=== PATIENT | female | born 1970 | race Caucasian/White ===

== ENCOUNTER 2017-05-19 18:20 | Emergency (ER) | payer OTHER, MEDICAID ==
[~2017-05-19] VITALS: Ht 162.6 cm; Wt 90.3 kg
[~2017-05-19 18:20] MED LIST: ADVAIR HFA 230M12 GM INH; ALPRAZOLAM ER1 MG PO; AMBIEN 10 MG TA10 MG PO; ASPIRIN325; BAYER CHEWABLE81 MG PO; CITALOPRAM; DESYREL50 MG PO; DIFLUCAN150 M1 PO; DOXEPIN HCL50 MG PO; EFFEXOR; EFFEXOR XR75 MG PO; EFFEXOR50 MG PO; FLAGYL500 MG PO; FLEXERIL PO; FLONASE 0.05%50 MCG INH; HYDROCODONE-AP1 EAC6 PO; IBUPROFEN 200200 M1; IBUPROFEN 800800 M1 PO; IBUPROFEN 800800 MG PO; IRON236 MG; JANUMET XR 1001 EACH; KEFLEX500 M1 PO; LAMICTAL XR100 MG PO; LIORESAL 10 MG10 MG PO; LORTAB 5 MG/5001 TA1 PO; MELATONIN 5 MG1 EAC1; MOBIC15 MG; MOBIC15 MG PO; MULTIVITAMINS; NABUMETONE 750750 M1 PO; NAPROSYN500 MG PO; NEURONTIN100 MG PO; NORCO 10-325 T1 EACH; NORCO 5-325 TA1 EACH PO; NORVASC5 MG PO; PENICILLIN VK500 M1 PO; PRILOSEC20 MG PO; PROAIR HFA8.5 GM INH; PROPRANOLOL 1010 MG PO; PROPRANOLOL 20M20 M1 PO; PROTONIX40 M2 PO; RESTORIL30 MG PO; RISPERDAL 1 MG T1 MG PO; RISPERDAL0.5 MG PO; SLOW RELEASE I140 MG; STOOL SOFTENER100 MG PO; TOPAMAX50 MG PO; TRAZODONE 100100 MG PO; TRAZODONE 150150 M1 PO; TRILEPTAL 300300 MG PO; ULTRAM 50MG TAB50 MG PO; VISTARIL 25 MG25 M1 PO; XANAX 0.5 MG0.5 MG PO; XANAX PO; ZANAFLEX2 MG PO; ZYRTEC10 M2 PO
[2017-05-19] MEDS ORDERED: ACID REDUCER20 MG PO (19:25)
[2017-05-19] MEDS ORDERED: TRIAMCINOLONE A80 G2 TOP (19:25)
[2017-05-19] MEDS ORDERED: MEDROLDOSEPACK PO (19:25)
[2017-05-19 19:41] VITALS: BP 142/75
== END 2017-05-19 19:41 | disposition home or self-care (01) ==
LOC: M.ERS 18:20
DX: L50.0 Allergic urticaria (principal); F31.9 Bipolar disorder, unspecified; K21.9 Gastro-esophageal reflux disease without esophagitis; M19.90 Unspecified osteoarthritis, unspecified site; G43.909 Migraine, unspecified, not intractable, without status migrainosus; I10 Essential (primary) hypertension; Z88.5 Allergy status to narcotic agent; Z88.8 Allergy status to other drugs, medicaments and biological substances

== ENCOUNTER 2018-07-03 23:13 | Inpatient (IN) | payer OTHER, MEDICAID ==
[~2018-07-03] VITALS: Ht 162.6 cm; Wt 98.0 kg
[~2018-07-03 23:13] MED LIST changes: +ACID REDUCER20 MG PO; +COZAAR 25 MG TA25 M1 PO; +MEDROLDOSEPACK PO; +MELATONIN5 M1; +NORCO 10-325 T1 EACH PO; +SLEEP AID50 MG; +TRIAMCINOLONE A80 G2 TOP; +ZYRTEC10 M4
[2018-07-03 23:15] VITALS: BP 144/86
--- NOTE | 2018-07-03 23:33 | NUR ---
PT UP TO BATHROOM. STEADY GAIT.
[2018-07-03 23:38] LABS: ABSOLUTE BASOPHILS 0.1 thou/uL (0.0-0.2); ABSOLUTE EOSINOPHILS 0.1 thou/uL (0.0-0.7); ABSOLUTE LYMPHOCYTES 2.4 thou/uL (0.8-5.3); ABSOLUTE MONOCYTES 0.5 thou/uL (0.0-1.2); ABSOLUTE NEUTROPHILS 3.1 thou/uL (1.6-8.1); BASOPHILS 1.4 %; EOSINOPHILS 1.5 %; HEMATOCRIT 39.7 % (37.0-47.0); HEMOGLOBIN 13.9 gm/dL (12.0-15.0); LYMPHOCYTES 39.8 %; MCH 32.9 pg (26.0-34.0); MCV 94.2 fL (80.0-100.0); MONOCYTES 7.4 %; MPV 7.7 fl. (7.2-11.1); NUCLEATED RBCS 0 /100WBC; PLATELET COUNT* 198 thou/uL (150-400); POLYS 49.9 %; RBC 4.21 mil/uL (4.20-5.00); RDW-CV 12.5 % (10.5-14.5); WBC 6.2 thou/uL (4.0-11.0)
[2018-07-03 23:48] LABS: ANION GAP 6 mmol/L (7-16); BUN 6 mg/dL (7-18); CALCIUM 9.2 mg/dL (8.5-10.1); CHLORIDE 92 mmol/L (98-107); CO2 29 mmol/L (21-32); CREATININE 0.7 mg/dL (0.6-1.3); GLUCOSE 110 mg/dL (70-99); POTASSIUM 3.2 mmol/L (3.5-5.1); SODIUM 127 mmol/L (136-145)
--- NOTE | 2018-07-03 23:48 | NUR ---
RADIOLOGY AT BEDSIDE
[2018-07-03 23:56] LABS: URINE BILIRUBIN NEGATIVE (Negative); URINE BLOOD NEGATIVE (Negative); URINE CLARITY CLEAR; URINE COLOR STRAW; URINE GLUCOSE-RANDOM NEGATIVE (Negative); URINE KETONES NEGATIVE (Negative); URINE LEUKOCYTES-REFLEX NEGATIVE (Negative); URINE NITRITE-REFLEX NEGATIVE (Negative); URINE PROTEIN NEGATIVE (Negative); URINE SPECIFIC GRAVITY <= 1.005 (1.005-1.030); URINE UROBILINOGEN 0.2 E.U./dl (0.2-1.0)
[2018-07-03 23:59] LABS: ALBUMIN 3.8 g/dL (3.4-5.0); ALKALINE PHOSPHATASE 80 U/L (46-116); NT-PRO BRAIN NAT PEPTIDE 54 pg/mL (<300); SGOT 36 U/L (15-37); SGPT 48 U/L (30-65); TOTAL BILIRUBIN 0.3 mg/dL (<0.1-1.0); TOTAL PROTEIN 7.1 g/dL (6.4-8.2); TROPONIN-I LEVEL <0.06 ng/mL (<0.06)
[2018-07-04 00:01] LABS: INR 1.1; PROTIME 10.9 Seconds (9.20-11.50)
--- NOTE | 2018-07-04 00:15 | NUR ---
PT UPDATED ON POC
--- NOTE | 2018-07-04 01:43 | NUR ---
PT UP TO DATE ON POC
[2018-07-04 02:52] VITALS: BP 111/80
[2018-07-04 03:07] VITALS: BP 138/64
--- NOTE | 2018-07-04 05:27 | NUR ---
RECEIVED PT FROM ED @ APPROX 0300. PT AWAKE AND ORIENTED X 4. VSS ON O2 INHALATION VIA NC @2L. 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 PT VERBALIZED CHEST PAIN WAS RELEIVED BY NITRO AND MORPHINE GIVEN IN THE ED. PROVIDED ORIENTATION ON ROOM SET UP AND CALL LIGHT USE. HOURLY ROUNDING DONE FOR PT SAFETY.
[2018-07-04 08:10] VITALS: BP 114/81
--- NOTE | 2018-07-04 08:10 | NUR ---
RECEIVED REPORT FROM LINDA/ROLANDO AND ASSUMED CARE OF PT @ 1456.PT IS A/O X4,VSS,TRACING SR ON THE MONITOR.PT REMAINS ON 2L O2 NC.IV PATENT WITH IVF INFUSING PER ORDERS.PT IS NPO STATUS PENDING CARDIOLOGY CONSULT.PT IS CALM AND COOPERATIVE WITH C/O PAIN IN HER BACK 10/29.-MEDICATIONS GIVEN.PT IS UP AD JESSICA IN ROOM.CALL LIGHT WITHIN REACH.WILL CONTINUE TO MONITOR.
[2018-07-04 09:10] LABS: CALCIUM 9.2 mg/dL (8.5-10.1); CREATININE 0.6 mg/dL (0.6-1.3); MAGNESIUM 2.2 mg/dL (1.8-2.4)
[2018-07-04 11:16] VITALS: BP 118/82
--- NOTE | 2018-07-04 13:10 | EKG ---
[place] [address] ELECTROCARDIOGRAM REPORT Name: GEORGE KOVACS Room: [address] ADM IN .R.#: [id number] Admission: 07/04/18 Attend Phys: Saulo Christopher MD Discharge: Date of : 70 Report #: [id number] THIS REPORT FOR: //name// [facility] ED Test Date: 2018-07-03 Test Time: 23:21:20 Pat Name: GEORGE KOVACS Department: Room: [facility] Gender: F Ged Preparation Teacher: Leon De Leon : 1970 Requested By: Sofiya Stein Order Number: [id number] MD: Daryl Barbour Measurements Intervals [place] Rate: 99 P: 71 NV: 157 QRS: 16 QRSD: 97 T: 75 QT: 371 QTc: 477 Interpretive Statements Sinus rhythm Probable left atrial enlargement nonspecific st changes Compared to ECG 06/17/2018 10:25:35 Ventricular premature complex(es) no longer present Electronically Signed On 07-04-2018 13:09:52 MINERAL MIXER by Daryl Barbour [email or web address] <ELECTRONICALLY SIGNED> By: Daryl Barbour MD, [facility] 07/04/18 1309 [id number] [id number] Daryl Barbour MD, [facility] /EPI
--- NOTE | 2018-07-04 17:03 | EXE ---
[place] [address] STRESS ECHOCARDIOGRAM Name: GEORGE KOVACS Room: [address] IN ..#: [id number] Admission: 07/04/18 Attend Phys: Saulo Christopher, Discharge: Date of : 70 Date of Service: 07/04/18 1703 Report #: [id number] THIS REPORT FOR: //name// APPROVED REPORT Study performed: 07/04/2018 16:21:42 Exam: Stress Echocardiogram Indication: Chest pain Patient Location: In-Patient Stress Nurse: Melissa Sandoval RN Room #: 200 Supervising Physician: Daryl Barbour MD Status: routine Ht: 5 ft 4 in HR: 79 bpm BP: 128/78 mmHg Rhythm: NSR Medical History Cardiac Risk Factors: HTN, Smoking Procedure The patient underwent an Exercise Stress Test using the James Protocol. Blood pressure, heart rate, and EKG were monitored. An Echocardiogram was performed by automotive maintenance technician in four stages in quad fashion. At peak stress, four selected images were obtained and placed side by side with resting images for comparison. Echo Enhancing Agent Indication: Endocardial border delineation Agent(s) / Amount(s) Used: Optison 6 cc Stress Test Details Stress Test: Exercise stress testing was performed using a James protocol. HR Resting HR: 79 bpm Max Heart Rate (APMHR): 173 bpm Max HR Achieved: 156 bpm Target HR (85% APMHR): 147 bpm % of APMHR: 90 Recovery HR: 95 bpm HR response to stress: Normal HR response to stress BP Resting BP: 128/78 [place] [address] STRESS ECHOCARDIOGRAM Name: GEORGE KOVACS Room: [address]#: [id number] Admission: 07/04/18 Attend Phys: Saulo Christopher, Discharge: Date of : 70 Date of Service: 07/04/18 1703 Report #: [id number] Max BP: 166/79 mmHg Recovery BP: 142/80 mmHg BP response to stress: Normal blood pressure response to stress. ECG Resting ECG: Sinus Rhythm Stress ECG: Sinus Tachycardia ST Change: none Arrhythmia: None Recovery ECG: Sinus Rhythm Recovery ST Change: none Recovery Arrhythmia: None Clinical Reason for Termination: Maximal effort, fatigue Exercise duration: 2 min 58 sec Highest Stage Achieved: Stage 1: 1.7 mph at 10% grade. Exercise capacity: 4.64 METs The patient tolerated standard James protocol exercise without significant symptoms. Stress ECG Conclusion The baseline 12-lead EKG shows sinus rhythm without significant ST or T wave abnormality. EKGs obtained during and post exercise stress show sinus rhythm and sinus tachycardia with no significant ST or T wave changes when compared to baseline. There were no stress-induced arrhythmias. Pre-Stress Echo The resting Echocardiogram showed normal left ventricular contractility with an estimated Ejection Fraction of about 55-60%. Post-Stress Echo The stress Echocardiogram showed normal left ventricular contractility with an estimated Ejection Fraction of about >70%. Conclusion Clinical Response: Non-ischemic Exercise Capacity: Average Stress ECG Response: Non-ischemic Stress Echo Images: Non-ischemic [place] [address] STRESS ECHOCARDIOGRAM Name: GEORGE KOVACS Room: [address]#: [id number] Admission: 07/04/18 Attend Phys: Saulo Christopher, Discharge: Date of : 70 Date of Service: 07/04/181702 Report #: [id number] Technically limited study due to body habituspoor endocardial definition. <ELECTRONICALLY SIGNED> By: Misael Omalley MD, FACC 07/04/181702 02 02 Misael Omalley MD, FACC /INF
[2018-07-04 17:39] VITALS: BP 118/82
--- NOTE | 2018-07-04 17:57 | NUR ---
PT STRESS TEST NEGATIVE.PT OK FOR DISCHARGE.PAPERWORK COMPLETED AND GIVEN TO PT.NO SCRIPTS GIVEN.IV REMOVED.HEART MONITOR REMOVED AND RETURNED TO THE NURSING STATION.ALL PERSONAL BELONGINGS PACKED AND TAKEN WITH THE PT.PT WAITING IN ROOM FOR RIDE.
--- NOTE | 2018-07-05 12:43 | CON ---
[address] [address] CONSULTATION Name: FERMÍNGEORGE Kalyn Room: [address] IN M.R.#: [id number] Admission: 07/04/18 Attend Phys: Saulo Christopher MD Discharge: 07/04/18 Date of : 70 Report #: [id number] THIS REPORT FOR: //name// CC: aJmes Bishop DO Samir Cervantes Saulo Christopher DATE OF SERVICE: 07/04/2018 HISTORY OF PRESENT ILLNESS: The patient is a 47-year-old single white female who I was asked to see in the hospital today after she complained of chest pain. The patient has no previous history of heart disease. She did undergo an echocardiogram in 10/2016 as an outpatient that showed ejection fraction of 65%. The patient is not very active at this time. She was actually here at [place] a month ago with chest pain. She was seen by Dr. Tillman who recommended a stress test, but the patient left AMA. The patient states she was doing well until last night she was at home in bed when she felt a discomfort in her chest. She felt somewhat nauseated, short of breath. She called EMS and was brought to the Emergency Room. She was admitted for further evaluation and treatment. She knows she is scheduled for an outpatient stress test. She denied the pain being related to food. She had no belching episode. She has had no recent bleeding. She denied any recent fever, cough or trauma to her chest. She denies exertional dyspnea, palpitations or syncope. PAST MEDICAL HISTORY: She has had tubal ligation, knee arthroscopy, hypertension, hyperlipidemia. MEDICATIONS: Include amlodipine, Crestor, losartan. ALLERGIES: She has intolerance to COMPAZINE and CHANTIX. FAMILY HISTORY: Grandfather had coronary artery bypass surgery. SOCIAL HISTORY: She is , lives by herself in [place]. She is on disability for anxiety disorder. Smokes 4-1/2 pack of cigarettes a day. No alcohol abuse, no illicit drug use. REVIEW OF SYSTEMS: She has had no history of stroke or asthma. She has had a peptic ulcer in the past. No liver disease, no kidney disease, no cancer. She has a history of anxiety disorder, sees a psychiatrist. No chronic skin condition. PHYSICAL EXAMINATION: GENERAL: Revealed a middle-aged female who was lying in bed. She appeared in no acute distress. VITAL SIGNS: She had a blood pressure of 120/80, pulse 80, [place] [address] CONSULTATION Name: GEORGE KOVACS Room: [address]#: [id number] Admission: 07/04/18 Attend Phys: Saulo Christopher MD Discharge: 07/04/18 Date of : 70 Report #: [id number] HEENT: She was anicteric, conjunctiva pink. Mucous members moist. NECK: Veins do not appear distended. CHEST: Clear to auscultation. CARDIAC: Regular rate and rhythm. ABDOMEN: Obese, soft, nontender. EXTREMITIES: Had no edema. SKIN: Warm and dry. NEUROLOGIC: Nonfocal. Her ECG on admission last night showed a sinus rhythm, nonspecific ST and T-wave changes. Her workup, she actually had a portable chest x-ray done last night that showed normal heart size, clear lung mejia. LABORATORY DATA: Sodium 131, creatinine 0.6. Liver function studies were normal. Troponin 0.06. White blood cell count 6.2, hemoglobin 13.9. IMPRESSION AND RECOMMENDATIONS: 1. Chest pain. Atypical for angina. Suspect noncardiac. Agree with need for stress testing. 2. History of anxiety disorder. 3. Hypertension. The patient on amlodipine and losartan. 4. Hyperlipidemia. The patient is on a statin drug. 5. Tobacco abuse. <ELECTRONICALLY SIGNED> By: Daryl Barbour MD, FACC 07/05/18 1243 1413 [id number] Barbour MD, FACC /nt
== END 2018-07-04 18:13 | disposition home or self-care (01) | DRG 313 ==
LOC: M.ERS 23:13 → M.TBA-ER 07-04 01:48 → M.2W 07-04 01:48
PROVIDERS: Emergency Medicine; Internal Medicine; ADMIT Internal Medicine
DX: R07.89 Other chest pain (principal); E87.1 Hypo-osmolality and hyponatremia; I20.9 Angina pectoris, unspecified; G89.29 Other chronic pain; M41.9 Scoliosis, unspecified; F31.9 Bipolar disorder, unspecified; I10 Essential (primary) hypertension; G43.909 Migraine, unspecified, not intractable, without status migrainosus; K21.9 Gastro-esophageal reflux disease without esophagitis; M19.90 Unspecified osteoarthritis, unspecified site; F17.200 Nicotine dependence, unspecified, uncomplicated; F41.9 Anxiety disorder, unspecified; E78.5 Hyperlipidemia, unspecified; Z82.49 Family history of ischemic heart disease and other diseases of the circulatory system; Z88.6 Allergy status to analgesic agent; Z88.1 Allergy status to other antibiotic agents; Z88.8 Allergy status to other drugs, medicaments and biological substances; Z79.899 Other long term (current) drug therapy

== ENCOUNTER 2018-08-06 14:28 | Emergency (ER) | payer OTHER, MEDICAID ==
[~2018-08-06] VITALS: Ht 162.6 cm; Wt 97.1 kg
[2018-08-06 16:13] VITALS: BP 122/70
== END 2018-08-06 16:15 | disposition home or self-care (01) ==
LOC: M.ERS 14:28
DX: S20.212A Contusion of left front wall of thorax, initial encounter (principal); S20.211A Contusion of right front wall of thorax, initial encounter; M41.9 Scoliosis, unspecified; F31.9 Bipolar disorder, unspecified; I10 Essential (primary) hypertension; K21.9 Gastro-esophageal reflux disease without esophagitis; M19.90 Unspecified osteoarthritis, unspecified site; G43.909 Migraine, unspecified, not intractable, without status migrainosus; X58.XXXA Exposure to other specified factors, initial encounter; Y93.89 Activity, other specified; Y92.89 Other specified places as the place of occurrence of the external cause; Y99.8 Other external cause status

== ENCOUNTER 2019-06-26 11:45 | Emergency (ER) | payer OTHER, MEDICAID ==
[~2019-06-26] VITALS: Ht 162.6 cm; Wt 102.5 kg
--- NOTE | ~2019-06-26 | EKG ---
[place] [address] ELECTROCARDIOGRAM REPORT Name: GEORGE KOVACS Room: [facility]#: [id number] Admission: 06/26/19 Attend Phys: Discharge: 06/26/19 Date of : 70 Date of Service: 06/26/19 1149 Report #: [id number] THIS REPORT FOR: cc: James Bishop Ahmad W. 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
[2019-06-26] MEDS ORDERED: ALPRAZOLAM XR3 MG PO (12:05)
[2019-06-26] MEDS ORDERED: DORYX MPC120 MG PO (12:09)
[2019-06-26 12:10] LABS: ABSOLUTE BASOPHILS 0.1 thou/uL (0.0-0.2); ABSOLUTE EOSINOPHILS 0.1 thou/uL (0.0-0.7); ABSOLUTE MONOCYTES 0.3 thou/uL (0.0-1.2); ABSOLUTE NEUTROPHILS 5.4 thou/uL (1.6-8.1); BASOPHILS 0.7 %; EOSINOPHILS 1.2 %; HEMATOCRIT 37.8 % (37.0-47.0); LYMPHOCYTES 25.5 %; MCH 33.6 pg (26.0-34.0); MCHC 34.3 g/dL (28.0-37.0); MCV 98.1 fL (80.0-100.0); MONOCYTES 3.6 %; MPV 7.8 fl. (7.2-11.1); NUCLEATED RBCS 0 /100WBC; PLATELET COUNT* 232 thou/uL (150-400); RBC 3.85 mil/uL (4.20-5.00); RDW-CV 12.8 % (10.5-14.5); WBC 7.8 thou/uL (4.0-11.0)
[2019-06-26] MEDS ORDERED: MONTELUKAST SODI4 M1 PO (12:10)
[2019-06-26] MEDS ORDERED: BUSPIRONE HCL15 MG PO (12:10)
[2019-06-26] MEDS ORDERED: CRESTOR5 MG PO (12:11)
[2019-06-26] MEDS ORDERED: VENLAFAXINE HCL75 M1 PO (12:11)
[2019-06-26 12:28] LABS: CALCIUM 9.5 mg/dL (8.5-10.1); CREATININE 0.5 mg/dL (0.6-1.3); POTASSIUM 3.7 mmol/L (3.5-5.1)
[2019-06-26 12:34] LABS: APTT 28.6 Seconds (25.0-31.3); PROTIME 10.3 Seconds (9.20-11.50)
[2019-06-26 12:35] LABS: ALBUMIN 3.7 g/dL (3.4-5.0); CK-MB MASS 0.8 ng/mL (<0.5-3.6); MAGNESIUM 1.8 mg/dL (1.8-2.4); TOTAL BILIRUBIN 0.3 mg/dL (<0.1-1.0)
[2019-06-26 13:20] VITALS: BP 108/75
== END 2019-06-26 13:23 | disposition home or self-care (01) ==
LOC: M.ERS 11:45
PROVIDERS: Family Medicine
DX: R07.89 Other chest pain (principal); G43.909 Migraine, unspecified, not intractable, without status migrainosus; K21.9 Gastro-esophageal reflux disease without esophagitis; M19.90 Unspecified osteoarthritis, unspecified site; I10 Essential (primary) hypertension; M41.9 Scoliosis, unspecified; F17.210 Nicotine dependence, cigarettes, uncomplicated; Z88.6 Allergy status to analgesic agent; Z88.8 Allergy status to other drugs, medicaments and biological substances; Z98.51 Tubal ligation status

== ENCOUNTER 2019-07-08 07:51 | Emergency (ER) | payer OTHER, MEDICAID ==
[~2019-07-08] VITALS: Ht 162.6 cm; Wt 97.1 kg
[~2019-07-08 07:51] MED LIST changes: +ALPRAZOLAM XR3 MG PO; +BUSPIRONE HCL15 MG PO; +CRESTOR5 MG PO; +DORYX MPC120 MG PO; +MONTELUKAST SODI4 M1 PO; +VENLAFAXINE HCL75 M1 PO
[2019-07-08] MEDS ORDERED: BENZTROPINE MES1 MG PO (07:59)
[2019-07-08 09:44] VITALS: BP 148/78
== END 2019-07-08 09:46 | disposition home or self-care (01) ==
LOC: M.ERS 07:51
DX: R42 Dizziness and giddiness (principal); G43.909 Migraine, unspecified, not intractable, without status migrainosus; F31.9 Bipolar disorder, unspecified; I10 Essential (primary) hypertension; K21.9 Gastro-esophageal reflux disease without esophagitis; M19.90 Unspecified osteoarthritis, unspecified site; F17.210 Nicotine dependence, cigarettes, uncomplicated; Z88.8 Allergy status to other drugs, medicaments and biological substances; W18.39XA Other fall on same level, initial encounter; Y92.009 Unspecified place in unspecified non-institutional (private) residence as the place of occurrence of the external cause; Y93.89 Activity, other specified; Y99.8 Other external cause status

== ENCOUNTER 2020-06-21 23:49 | Emergency (ER) | payer OTHER, MEDICAID ==
[~2020-06-21] VITALS: Ht 162.6 cm; Wt 104.3 kg
[~2020-06-21 23:49] MED LIST changes: +BENZTROPINE MES1 MG PO
[2020-06-21 23:51] VITALS: BP 151/99
[2020-06-22] MEDS ORDERED: CLEOCIN HCL300 MG PO (00:28)
--- NOTE | 2020-06-22 10:33 | EKG ---
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 06/22/20 1033 0001 0001 Daryl Barbour MD, [facility] /EPI
== END 2020-06-22 00:38 | disposition home or self-care (01) ==
LOC: M.ERS 23:49
DX: K02.9 Dental caries, unspecified (principal); H92.01 Otalgia, right ear; M41.9 Scoliosis, unspecified; I10 Essential (primary) hypertension; G43.909 Migraine, unspecified, not intractable, without status migrainosus; K21.9 Gastro-esophageal reflux disease without esophagitis; M19.90 Unspecified osteoarthritis, unspecified site; F17.210 Nicotine dependence, cigarettes, uncomplicated; Z88.8 Allergy status to other drugs, medicaments and biological substances; Z88.6 Allergy status to analgesic agent; Z98.51 Tubal ligation status